=== PATIENT | female | born 1985 | race Caucasian/White ===

== ENCOUNTER → 2017-11-17 15:41 | Outpatient (CLI) | payer OTHER, SELFPAY ==
--- NOTE | 2017-11-17 10:50 | LES_PTH ---
PATIENT: SHAUN MURO LOC: [facility] U#:[id number] AGE/SX: 39/F ROOM: RE11/17/[address]: Dr. Chai Boyce MD : [id number] BED: DIS: SPEC #: [id number] RECD: 11/17/17 15:38 STATUS: ALEX HAYDEN #: [id number] JASMYN: 11/17/17 10:[address]: Chai Boyce DEPT: SURGICAL PATHOLOGY RECD BY: Ajay Peck Tissues: Skin of eyelid, NOS Procedures: Surgery Specimen Level IV HEADER OPERATION: Excision lesion left caruncle PRE-OP DIAGNOSIS: Lesion left eye TISSUE SUBMITTED: Lesion left caruncle MICROSCOPIC DIAGNOSIS Lesion, left eye, biopsy: Fragments of squamous papilloma. AM:richa 11/19/17 MICROSCOPIC DESCRIPTION Slides are reviewed. GROSS DESCRIPTION Received in fixative is one container labeled with the patient's name and designated left caruncle. The specimen consists of two irregular fragments of lopez tissue that in aggregate measure 0.3 x 0.2 x 0.1 cm. The specimen is totally submitted in one cassette. / AM:richa 11/18/17 TC:5 [facility]: [id number]
== END ==
PROVIDERS: Visit Provider Ophthalmology
DX: H57.8 Other specified disorders of eye and adnexa (principal)
CPT/HCPCS: 88305

== ENCOUNTER → 2019-01-16 10:15 | Outpatient (CLI) | payer OTHER, SELFPAY ==
[2019-01-16 12:24] LABS: Absolute Lymphocyte Count 1.85 X10^3/ul (0.83-4.51); Absolute Neutrophil Count 2.9 X10^3/uL (2.0-7.7); Basophil# 0.04 X10^3/uL; Basophil% 0.7 % (0-1); Eosinophil# 0.29 X10^3/uL; Eosinophils% 5.2 % (0-5); Hemoglobin 14.3 g/dl (12.0-15.0); Lymphocyte # 1.85 X10^3/ul (4.0); Lymphocyte % 33.5 % (19-41); Mean Corpuscular Hgb 30.3 pg (27.0-32.0); Mean Platelet Vol. 9.2 fl (6.2-12.0); Monocyte# 0.46 X10^3/uL; Monocyte% 8.3 % (0-10); Neutrophil # 2.88 X10^3/uL (2.7-7.7); Neutrophil % 52.1 % (47-70); Platelet Count 278 K/mm3 (150-450); RBC Distribution Width CV 12.5 % (11.6-14.6); RBC Distribution Width SD 40.3 fl (35.1-43.9); Red Blood Count 4.72 M/mm3 (4.2-5.4); White Blood Count 5.5 K/mm3 (4.4-11.0)
[2019-01-16 12:34] LABS: POSITIVE COUNT NO; POSITIVE DIFFERENTIAL NO; POSITIVE MORPHOLOGY NO
[2019-01-16 12:35] LABS: Ferritin 20 ng/mL (8-252); Free T3 2.7 pg/mL (2.18-3.98); Iron 123 ug/dL (50-170); T4 Free Direct 0.99 ng/dL (0.76-1.46); Thyroid Stim Hormone (TSH) 1.09 uIU/mL (0.358-3.74)
[2019-01-16 12:36] LABS: Vitamin B12 426 pg/mL (211-911)
== END ==
LOC: BFHLAB 01-23 16:18 → LAB.FUTURE 06-26 10:44
PROVIDERS: Family Provider Family Medicine; PCP Family Medicine; Visit Provider Family Medicine
DX: R53.83 Other fatigue (principal); D64.9 Anemia, unspecified; E61.1 Iron deficiency; E53.8 Deficiency of other specified B group vitamins
CPT/HCPCS: 36415; 82607; 82728; 83540; 84439; 84443; 84481; 85025

== ENCOUNTER → 2019-12-21 09:33 | Outpatient (CLI) | payer OTHER, SELFPAY ==
[2013-08-21 01:21] VITALS: BMI 31.9
[2019-12-21 12:14] LABS: Absolute Lymphocyte Count 2.16 X10^3/uL (0.83-4.51); Basophil# 0.05 X10^3/uL; Basophil% 0.8 % (0-1); Eosinophil# 0.38 X10^3/uL; Eosinophils% 6.4 % (0-5); Hemoglobin 13.5 g/dL (12.0-15.0); Lymphocyte # 2.16 X10^3/ul (4.0); Lymphocyte % 36.4 % (19-41); Mean Corp Hgb Conc 32.9 g/dL (32-36); Mean Corpuscular Hgb 30.2 pg (27.0-32.0); Mean Corpuscular Volume 91.7 fL (81-99); Mean Platelet Vol. 9.1 fl (6.2-12.0); Monocyte# 0.38 X10^3/uL; Monocyte% 6.4 % (0-10); NRBC Flagged by Analyzer 0 % (0-5); Neutrophil # 2.96 X10^3/uL (2.7-7.7); Neutrophil % 49.8 % (47-70); Platelet Count 302 K/mm3 (150-450); RBC Distribution Width CV 12.3 % (11.6-14.6); RBC Distribution Width SD 41.1 fl (35.1-43.9); Red Blood Count 4.47 M/mm3 (4.2-5.4); White Blood Count 5.9 K/mm3 (4.4-11.0)
[2019-12-21 12:29] LABS: Vitamin B12 650 pg/mL (211-911)
[2019-12-21 12:33] LABS: Cholesterol 183 mg/dL (200); Ferritin 20 ng/mL (8-252); Free T3 2.6 pg/mL (2.18-3.98); High Density Lipoprotein 50 mg/dL; Iron 58 ug/dL (50-170); T4 Free Direct 0.96 ng/dL (0.76-1.46); Triglycerides 100 mg/dL; Very Low Density Lipoprotein 20 mg/dL (5-40)
[2019-12-27 09:08] LABS: Testosterone, % Free 1.44 % (0.50-2.80); Testosterone, Total 7 ng/dL (8-48)
[2019-12-27 13:31] LABS: DHEA Sulfate 77.8 ug/dL (57.3-279.2)
== END ==
PROVIDERS: Family Provider Family Medicine; PCP Family Medicine; Visit Provider Family Medicine
DX: D64.9 Anemia, unspecified (principal); E61.1 Iron deficiency; D51.9 Vitamin B12 deficiency anemia, unspecified; E78.5 Hyperlipidemia, unspecified; R53.83 Other fatigue
CPT/HCPCS: 36415; 80061; 82607; 82627; 82728; 83540; 84402; 84403; 84439; 84443; 84481; 85025; 82626

== ENCOUNTER 2021-09-09 13:31 | Outpatient (CLI) | payer OTHER, SELFPAY ==
[2021-09-12 15:13] LABS: HPV APTIMA, High Risk Negative (Negative)
== END 2021-09-09 23:59 | disposition home or self-care (01) ==
LOC: LABSPEC 13:39
PROVIDERS: PCP Family Medicine; Referring Provider Nurse Practitioner Women's Health; Visit Provider Nurse Practitioner Women's Health
DX: Z12.4 Encounter for screening for malignant neoplasm of cervix (principal)
CPT/HCPCS: 87624; 88175; G0145

== ENCOUNTER → 2024-04-18 | Outpatient (CLI) | payer OTHER, SELFPAY ==
[2024-04-18 10:45] LABS: Vitamin D,25 Hydroxy 22.1 ng/mL
[2024-04-18 10:49] LABS: Hemoglobin A1c 5.1 % (3.8-5.6)
[2024-04-18 10:51] LABS: Cholesterol 211 mg/dL (200); Glucose 99 mg/dL (74-106); High Density Lipoprotein 47 mg/dL; T4 Free Direct 1.02 ng/dL (0.76-1.46); Triglycerides 79 mg/dL; Very Low Density Lipoprotein 16 mg/dL (5-40)
[2024-04-19 04:07] LABS: Thyroid Peroxidase AB < 9 IU/mL (0-34)
== END | disposition home or self-care (01) ==
PROVIDERS: PCP Family Medicine; Referring Provider Nurse Practitioner Women's Health; Visit Provider Nurse Practitioner Women's Health
DX: Z00.00 Encounter for general adult medical examination without abnormal findings (principal); Z13.21 Encounter for screening for nutritional disorder; Z13.220 Encounter for screening for lipoid disorders; Z13.1 Encounter for screening for diabetes mellitus; Z13.29 Encounter for screening for other suspected endocrine disorder; R53.83 Other fatigue
CPT/HCPCS: 36415; 80061; 82306; 82947; 83036; 84439; 84443; 86376